=== PATIENT | male | born 1960 | race Caucasian/White ===

== ENCOUNTER 2020-01-03 08:07 | Outpatient (CLI) | payer OTHER, SELFPAY ==
--- NOTE | ~2020-01-03 | XR_ITS ---
EXAMINATION: XR lumbar spine min 4V DATE: 01/03/2020 09:07 INDICATION: Right foot drop. Low back pain. TECHNIQUE: 5 views of lumbar spine including flexion and extension views were obtained. COMPARISON: Lumbar spine MRI 01/03/2020 FINDINGS: There is 4 degrees dextrocurvature of lumbar spine. Vertebral body heights are normal. Ther e is mildly decreased disc height at L3-L4 and L4-L5 and severely decreased disc height at L5-S1. The spine is hypomobile with flexion and extension. There is multilevel facet joint osteoarthritis, soy re in lower lumbar spine. IMPRESSION: 1. Severe lumbar spondylosis. Reviewed, dictated and finalized at location A. LAPPER
--- NOTE | ~2020-01-03 | MR_ITS ---
EXAMINATION: MR lumbar spine wo con DATE: 01/03/2020 09:02 INDICATION: Right foot drop. TECHNIQUE: Magnetic resonance imaging (MRI) of the lumbar spine was performed without intravenous con trast. Sequences included sagittal T2-weighted FSE, sagittal T2-weighted FS FSE, sagittal T1-weighted FSE, and axial T2-weighted FSE. COMPARISON: Lumbar spine radiographs 11/24/2019 FINDINGS: There is 3 mm retrolisthesis of L3 on L4. Vertebral body heights are normal. There is mildl y decreased disc height at L3-L4, moderately decreased disc height at L4-L5, and severely decreased d isc at L5-S1. The distal spinal cord signal intensity is normal. The conus medullaris is at L1-L2. Th e following disc levels are specifically discussed: L1-L2: The disc does not extend beyond the endplate margin. There is mild bilateral facet joint osteo arthritis. There is no neural foraminal stenosis. There is no central canal stenosis. L2-L3: The disc is bulging. There is mild bilateral facet joint osteoarthritis. There is mild left ne ural foraminal stenosis. There is mild central canal stenosis. L3-L4: The disc is bulging with superimposed right central extrusion that displaces the right L4 nerv e root in right lateral recess. There is mild bilateral facet joint osteoarthritis. There is mild krissy ateral neural foraminal stenosis. There is mild central canal stenosis. L4-L5: The disc is bulging with superimposed left central extrusion. There is severe bilateral facet joint osteoarthritis. There is moderate bilateral neural foraminal stenosis. There is severe central canal stenosis. L5-S1: The disc is bulging. There is moderate and mild left facet joint osteoarthritis. There is mild right and moderate left neural foraminal stenosis. There is mild central canal stenosis. IMPRESSION: 1. Severe lumbar spondylosis. Reviewed, dictated and finalized at location A. 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
== END 2020-01-03 08:08 | disposition home or self-care (01) ==
PROVIDERS: PCP Internal Medicine; Visit Provider Neurological Surgery
DX: M21.371 Foot drop, right foot (principal); M51.16 Intervertebral disc disorders with radiculopathy, lumbar region; M47.896 Other spondylosis, lumbar region
CPT/HCPCS: 72110; 72148

== ENCOUNTER 2020-07-14 13:28 | Outpatient (CLI) | payer OTHER, SELFPAY ==
--- NOTE | ~2020-07-14 | XR_ITS ---
XR lumbar spine min 4V DATE: 07/14/2020 13:52 INDICATION: Right foot drop TECHNIQUE: AP, lateral, coned lateral lumbosacral views. Flexion and extension lateral views. COMPARISON: 01/03/2020 lumbar spine FINDINGS: There is normal alignment of the lumbar spine. No fracture or bone destruction, spondylolys is or spondylolisthesis. There is moderate degenerative disc disease at the lumbar interspaces, moderately severe degenerative disease at L5-S1. There is no instability on flexion or extension. The sacroiliac joints are unremarkable. IMPRESSION: Multilevel degenerative disc disease Reviewed, dictated and finalized at location A.
== END 2020-07-14 13:29 | disposition home or self-care (01) ==
PROVIDERS: PCP Internal Medicine; Visit Provider Neurological Surgery
DX: M21.371 Foot drop, right foot (principal); M51.36 Other intervertebral disc degeneration, lumbar region
CPT/HCPCS: 72110